=== PATIENT | male | born 1980 | race Caucasian/White ===

== ENCOUNTER 2016-12-24 22:52 | Emergency (ER) | payer OTHER | END 2016-12-25 00:05 | disposition home or self-care (01) | LOC: CED 22:52 | DX: R51 Headache (principal); T43.595A Adverse effect of other antipsychotics and neuroleptics, initial encounter; F17.200 Nicotine dependence, unspecified, uncomplicated; F32.9 Major depressive disorder, single episode, unspecified; Y92.9 Unspecified place or not applicable | CPT/HCPCS: 36415; 96374; 96375; 99283; 99284; J1200; J2930 ==